=== PATIENT | female | born 1980 | race Caucasian/White ===

== ENCOUNTER 2017-01-19 22:19 | Observation (INO) | payer OTHER ==
[~2017-01-19 22:19] MED LIST: PREN1TAB22 PO
[2017-01-20 01:05] VITALS: BP 120/69
[2017-02-16] MEDS ORDERED: FERR-89 PO (10:55)
== END 2017-01-20 00:45 | disposition home or self-care (01) ==
LOC: 4S 22:19
PROVIDERS: ADMIT Obstetrics & Gynecology; ATTEND Obstetrics & Gynecology
DX: O62.9 Abnormality of forces of labor, unspecified (principal); O09.523 Supervision of elderly multigravida, third trimester; Z3A.36 36 weeks gestation of pregnancy
CPT/HCPCS: 59025; G0378 ×2

== ENCOUNTER 2017-02-12 20:14 | Inpatient (IN) | payer OTHER ==
[~2017-02-12] VITALS: Ht 154 cm; Wt 68.5 kg
[2017-02-12] MEDS ORDERED: RINGERS SOLUTION,LACTATED 1,000 ML IV PRN (20:54)
[2017-02-12] MEDS ORDERED: FentaNYL CITRATE-PF 100 MCG/2 ML VIAL IVP PRN (21:00)
[2017-02-12] MEDS ORDERED: OXYGEN THERAPY IH SCH (21:00)
[2017-02-12] MEDS ORDERED: CITRIC ACID/SODIUM CITRATE 30 ML SOLUTION UDCUP PO PRN (21:00)
[2017-02-12] MEDS ORDERED: METOCLOPRAMIDE HCL 5 MG/ML 2 ML VIAL IVP PRN (21:00)
[2017-02-12 21:17] LABS: BASOPHILS # (AUTO) 0.05 K/uL (0.00-0.20); BASOPHILS % (AUTO) 0.5 % (0.0-2.0); EOSINOPHILS # (AUTO) 0.11 K/uL (0.00-0.70); EOSINOPHILS % (AUTO) 0.94 % (1.0-6.0); HEMATOCRIT 38.1 % (36-46); HEMOGLOBIN 12.7 g/dL (12.0-16.0); LYMPHOCYTES # (AUTO) 1.7 K/uL (1.0-4.8); LYMPHOCYTES % (AUTO) 14.9 % (22.0-44.0); MEAN CORPUSCULAR HEMOGLOBIN 32.1 pg (26.0-34.0); MEAN CORPUSCULAR HGB CONC 33.4 G/dL (31.0-37.0); MEAN CORPUSCULAR VOLUME 96 fL (80-100); MONOCYTES # (AUTO) 0.8 K/uL (0.1-1.0); MONOCYTES % (AUTO) 7.4 % (2.0-9.0); NEUTROPHILS # (AUTO) 8.6 K/uL (1.8-7.7); NEUTROPHILS % (AUTO) 76.2 % (40.0-70.0); RED BLOOD CELL COUNT(AUTO) 3.97 MIL/uL (4.00-5.20); RED CELL DISTRIBUTION WIDTH 13.6 % (11.5-14.5); WHITE BLOOD COUNT (AUTO) 11.3 K/uL (4.5-11.0)
[2017-02-12] MEDS: RINGERS SOLUTION,LACTATED 1,000 ML IV SCH (21:59)
[2017-02-12] MEDS ORDERED: OXYTOCIN 30 UNITS/LACT RINGERS 500 ML IV PRN (23:58)
[2017-02-13 00:01] VITALS: BP 115/72
[2017-02-13] MEDS: RINGERS SOLUTION,LACTATED 1,000 ML IV SCH ×4 (06:05→18:33)
[2017-02-13] MEDS ORDERED: OXYTOCIN 30 UNITS/LACT RINGERS 500 ML IV ONE (08:00)
[2017-02-13] MEDS ORDERED: METOCLOPRAMIDE HCL 5 MG/ML 2 ML VIAL IVP ONE (12:00)
[2017-02-13] MEDS ORDERED: ONDANSETRON HCL 4 MG/2 ML VIAL IVP ONE (12:00)
[2017-02-13] MEDS ORDERED: OXYTOCIN 10 UNITS/ML VIAL IM ONE (12:00)
[2017-02-13] MEDS ORDERED: 0.9% SODIUM CHLORIDE 10 ML VIAL IVP ONE (12:00)
[2017-02-13] MEDS ORDERED: EPHEDrine SULFATE 50 MG/ML VIAL IM ONE (12:00)
[2017-02-13] MEDS ORDERED: FentaNYL CITRATE-PF 100 MCG/2 ML VIAL ONE (13:59)
[2017-02-13] MEDS ORDERED: SODIUM BICARBONATE 50 MEQ/50 ML VIAL ONE (14:25)
[2017-02-13] MEDS ORDERED: MISOPROSTOL 100 MCG TABLET ONE (14:42)
[2017-02-13] MEDS ORDERED: GUM MASTIC/STORAX/MSAL/ALCOHOL LIQUID 0.67 ML VIAL TP ONE (14:43)
[2017-02-13] MEDS ORDERED: SODIUM CHLORIDE 0.9% 1,000 ML IV ONE (14:53)
[2017-02-13] MEDS ORDERED: ACETAMINOPHEN 1000 MG/ISO-OSM 100 ML IV ONE (15:49)
[2017-02-13] MEDS ORDERED: NALOXONE HCL 0.4 MG/ML VIAL IVP PRN (16:00)
[2017-02-13] MEDS ORDERED: NALBUPHINE HCL 10 MG/ML VIAL IVP PRN ×3 (16:00)
[2017-02-13] MEDS ORDERED: ACETAMINOPHEN 1000 MG/ISO-OSM 100 ML IV SCH (16:00)
[2017-02-13] MEDS ORDERED: ONDANSETRON HCL 4 MG/2 ML VIAL IVP PRN ×2 (16:00)
[2017-02-13] MEDS ORDERED: DiphenhydrAMINE HCL 50 MG/ML VIAL IM PRN (16:00)
[2017-02-13] MEDS ORDERED: MORPHINE SULFATE 2 MG/ML SYRINGE IVP PRN ×2 (16:00)
[2017-02-13] MEDS ORDERED: FentaNYL CITRATE-PF 100 MCG/2 ML VIAL IVP PRN ×4 (16:00)
[2017-02-13] MEDS ORDERED: PROMETHAZINE HCL 12.5 MG in SODIUM CHLORIDE 0.9% 50 ML IV PRN (16:00)
[2017-02-13] MEDS ORDERED: MEPERIDINE-PF 25 MG/ML SYRINGE IVP PRN (16:00)
[2017-02-13] MEDS ORDERED: DEXAMETHASONE SOD PHOS 4 MG/ML VIAL IVP PRN (16:00)
[2017-02-13] MEDS ORDERED: DiphenhydrAMINE HCL 50 MG/ML VIAL IVP PRN ×2 (16:00)
[2017-02-13] MEDS ORDERED: MORPHINE SULFATE 10 MG/ML SYRINGE IVP PRN ×2 (16:00)
[2017-02-13 16:41] LABS: HEMATOCRIT 26.6 % (36-46); HEMOGLOBIN 8.7 g/dL (12.0-16.0); MEAN CORPUSCULAR HEMOGLOBIN 31.3 pg (26.0-34.0); MEAN CORPUSCULAR HGB CONC 32.6 G/dL (31.0-37.0); MEAN CORPUSCULAR VOLUME 96 fL (80-100); RED BLOOD CELL COUNT(AUTO) 2.77 MIL/uL (4.00-5.20); RED CELL DISTRIBUTION WIDTH 13.6 % (11.5-14.5); WHITE BLOOD COUNT (AUTO) 20.5 K/uL (4.5-11.0)
[2017-02-13] MEDS ORDERED: LANOLIN 7 GM OINTMENT TP PRN (16:45)
[2017-02-13] MEDS ORDERED: GLYCERIN/WITCH HAZEL LEAF 40 PADS JAR TP PRN (16:45)
[2017-02-13] MEDS ORDERED: IBUPROFEN 600 MG TABLET PO PRN (16:45)
[2017-02-13 17:10] LABS: BAND NEUTROPHILS % (MANUAL) 6 % (1-5); LYMPHOCYTES % (MANUAL) 7 % (22-44); TOTAL CELLS COUNTED 100
[2017-02-13 17:11] LABS: WBC MORPHOLOGY TOXIC GRANULATION
[2017-02-13 17:28] LABS: PROTHROMBIN TIME 10.9 SEC (9.4-11.6)
[2017-02-13] MEDS ORDERED: OXYGEN THERAPY IH SCH ×4 (20:00)
[2017-02-13] MEDS: MAGNESIUM HYDROXIDE SUSPENSION 30 ML UDCUP PO SCH (21:00)
[2017-02-13] MEDS: SENNA/DOCUSATE SODIUM 187-50 MG TABLET PO SCH (21:00)
[2017-02-13] MEDS: ACETAMINOPHEN 1000 MG/ISO-OSM 100 ML IV SCH (22:04)
[2017-02-13 23:02] LABS: BASOPHILS # (AUTO) 0.03 K/uL (0.00-0.20); BASOPHILS % (AUTO) 0.2 % (0.0-2.0); EOSINOPHILS # (AUTO) 0.02 K/uL (0.00-0.70); EOSINOPHILS % (AUTO) 0.17 % (1.0-6.0); HEMATOCRIT 23.3 % (36-46); HEMOGLOBIN 7.8 g/dL (12.0-16.0); LYMPHOCYTES # (AUTO) 1.7 K/uL (1.0-4.8); LYMPHOCYTES % (AUTO) 12.2 % (22.0-44.0); MEAN CORPUSCULAR HEMOGLOBIN 31.9 pg (26.0-34.0); MEAN CORPUSCULAR HGB CONC 33.3 G/dL (31.0-37.0); MEAN CORPUSCULAR VOLUME 96 fL (80-100); MONOCYTES # (AUTO) 0.9 K/uL (0.1-1.0); MONOCYTES % (AUTO) 6.3 % (2.0-9.0); NEUTROPHILS # (AUTO) 11.3 K/uL (1.8-7.7); NEUTROPHILS % (AUTO) 81.1 % (40.0-70.0); RED BLOOD CELL COUNT(AUTO) 2.43 MIL/uL (4.00-5.20); RED CELL DISTRIBUTION WIDTH 13.3 % (11.5-14.5); WHITE BLOOD COUNT (AUTO) 13.9 K/uL (4.5-11.0)
[2017-02-14] MEDS: ACETAMINOPHEN 1000 MG/ISO-OSM 100 ML IV SCH (04:13)
[2017-02-14] MEDS: RINGERS SOLUTION,LACTATED 1,000 ML IV SCH ×2 (04:25→13:20)
[2017-02-14] MEDS: MAGNESIUM HYDROXIDE SUSPENSION 30 ML UDCUP PO SCH ×2 (10:11→21:34)
[2017-02-14] MEDS: SENNA/DOCUSATE SODIUM 187-50 MG TABLET PO SCH ×2 (10:12→21:35)
[2017-02-14] MEDS: OxyCODONE HCL/ACETAMINOPHEN 5-325 MG TABLET PO PRN ×2 (10:40→21:37)
[2017-02-14] MEDS ORDERED: MORPHINE SULFATE/PF 0.5 MG/ML 10 ML AMP IVP ONE (12:00)
[2017-02-14] MEDS ORDERED: FentaNYL CITRATE-PF 100 MCG/2 ML VIAL IVP ONE (12:00)
[2017-02-14] MEDS: IBUPROFEN 800 MG TABLET PO SCH ×2 (12:37→18:31)
[2017-02-15] MEDS: IBUPROFEN 800 MG TABLET PO SCH ×4 (00:09→18:27)
[2017-02-15] MEDS: OxyCODONE HCL/ACETAMINOPHEN 5-325 MG TABLET PO PRN ×4 (04:13→22:37)
[2017-02-15] MEDS: MAGNESIUM HYDROXIDE SUSPENSION 30 ML UDCUP PO SCH ×2 (09:31→21:36)
[2017-02-15] MEDS: SENNA/DOCUSATE SODIUM 187-50 MG TABLET PO SCH ×2 (09:31→21:36)
[2017-02-16] MEDS: IBUPROFEN 800 MG TABLET PO SCH ×3 (00:08→12:20)
[2017-02-16] MEDS: MAGNESIUM HYDROXIDE SUSPENSION 30 ML UDCUP PO SCH (08:37)
[2017-02-16] MEDS: OxyCODONE HCL/ACETAMINOPHEN 5-325 MG TABLET PO PRN (08:38)
[2017-02-16] MEDS: SENNA/DOCUSATE SODIUM 187-50 MG TABLET PO SCH (08:38)
[2017-02-16] MEDS ORDERED: IBUP-1547 PO (10:50)
[2017-02-16] MEDS ORDERED: DSS100 PO (10:54)
[2017-02-16] MEDS ORDERED: FERS325 PO (10:55)
[2017-02-16] MEDS ORDERED: PERCT PO (10:55)
== END 2017-02-16 13:35 | disposition home or self-care (01) | DRG 766 ==
LOC: OBSVTOIN 20:14 → 4S 20:14
PROVIDERS: ADMIT Obstetrics & Gynecology; ATTEND Obstetrics & Gynecology
PROC: 10D00Z1 Extraction of Products of Conception, Low, Open Approach (ICD-10-PCS; principal; 2017-02-13)
PROC: 0UB70ZZ Excision of Bilateral Fallopian Tubes, Open Approach (ICD-10-PCS; 2017-02-13)
DX: O44.33 Partial placenta previa with hemorrhage, third trimester (principal); O44.53 Low lying placenta with hemorrhage, third trimester; O09.523 Supervision of elderly multigravida, third trimester; Z3A.39 39 weeks gestation of pregnancy; Z37.0 Single live birth; Z88.1 Allergy status to other antibiotic agents; Z88.2 Allergy status to sulfonamides; Z30.2 Encounter for sterilization
CPT/HCPCS: 85384; 86850; 86900; 86901; 86920; 88302; J0131; J0690; J2274; J2405; J2590; J2765; J3010; J3490; J7030; J7120